=== PATIENT | male | born 1985 | race Caucasian/White ===

== ENCOUNTER → 2020-09-13 11:39 | Outpatient (CLI) | payer OTHER, SELFPAY ==
[2020-09-13 13:38] LABS: COVID19 -Nasal RAPID Negative (Negative)
== END ==
PROVIDERS: PCP Physician Assistant; Referring Provider Physician Assistant; Visit Provider Physician Assistant
DX: Z01.812 Encounter for preprocedural laboratory examination (principal); Z20.822 Contact with and (suspected) exposure to COVID-19
CPT/HCPCS: 87635

== ENCOUNTER → 2020-09-15 13:35 | Outpatient (CLI) | payer OTHER, SELFPAY ==
--- NOTE | 2020-09-15 | DI.ECHO.S_ITS ---
[facility] +---------+ : : [address] : [address] : : : : [id number] : : : : Phone: [phone]---------+ Echocardiogram Report + + :Name: MILES LOPEZ Study Date: 09/15/2020 Height: 75 in : [facility] Reading[facility] Weight: 190 lb : : Gender: Male BSA: 2.1 m2 : :: 1985 Age: 34 yrs BP: 144/89 mmHg: :Reason For Study: Palpitations : :Ordering Physician: Netta : :Devika Chowdhury Performed By: Edmond Sanford : :Referring: NETTA PARDO : + + Interpretation Summary Left ventricular systolic function is normal with an estimated ejection fraction of 55 to 60% without any focal wall motion abnormality. Left ventricular size and wall thickness are normal with probable normal diastolic function and normal filling pressures. The right ventricle appears normal. Right ventricular systolic pressure is likely around 25 mmHg with a CVP of 3 mmHg. Both atria are normal in size. There is no significant valvular abnormality. This is a normal echocardiogram. Procedure: A two-dimensional transthoracic echocardiogram with color flow and Doppler was performed. The study quality was technically adequate. There is no prior echocardiogram noted for this patient. The patient was in sinus rhythm with heart rates between 64-78 bpm during the exam. Left Ventricle: The left ventricle appears normal in size, wall thickness, and systolic function without any focal wall motion abnormalities. The ejection fraction is estimated to be 55-60%. Diastolic parameters suggest probable normal left ventricular diastolic function and normal filling pressures. Right Ventricle: The right ventricle is normal in size and function. Atria: Both atria are normal in size. There is no Doppler evidence for an interatrial shunt. Mitral Valve: The mitral valve leaflets appear borderline thickened, but open well. There is trace mitral regurgitation. Aortic Valve: The aortic valve is trileaflet. The aortic valve opens well. No aortic regurgitation is present. Tricuspid Valve: The tricuspid valve is normal in structure and function. There is trace tricuspid regurgitation. The right ventricular systolic pressure is estimated to be at least 25 mmHg based on an estimated right atrial pressure of 3 mm Hg. Pulmonic Valve: The pulmonic valve is normal in structure and function. There is a trace or physiologic amount of pulmonic regurgitation. Great Vessels: The aortic root is normal size. The dimensions of the ascending aorta are normal. The IVC is of normal diameter and collapses greater than 50% with a sniff. This suggests a low right atrial pressure of 3 mm Hg. Pericardium/ Pleura There is no pericardial effusion. There is no pleural effusion. MMode/2D Measurements & Calculations LVIDd: 5.1 cm LVOT diam: 2.2 cm LVIDs: 3.5 cm Ao root diam: 3.1 cm FS: 30.8 % asc Aorta Diam: 2.9 cm IVSd: 0.94 cm LVPWd: 0.84 cm LV mooney. diameter/BSA (cm/m^2): 2.4 LV sys. diameter/BSA (cm/m^2): 1.6 LA A2 area: 9.6 cm2 RA long axis: 4.2 cm LA A4 area: 12.1 cm2 RA area: 11.4 cm2 LA length (vol): 3.6 cm RA vol: 26.4 ml LA vol: 27.5 ml RA : 12.3 ml/m2 LA vol index: 12.8 ml/m2 RVD1 (basal): 2.3 cm TAPSE: 2.4 cm Doppler Measurements & Calculations Ao V2 max: 135.1 cm/sec LVOT Max Stewart: 123.8 cm/sec Ao V2 mean: 94.6 cm/sec LV V1 max P.1 mmHg Ao max P.3 mmHg LV V1 VTI: 21.9 cm Ao mean P.0 mmHg BAUTISTA(I,D): 3.2 cm2 Ao V2 VTI: 24.9 cm BAUTISTA(V,D): 3.3 cm2 sev ratio: 0.88 BAUTISTA indexed to BSA (cm^2/m^2): 1.5 MV E max stewart: 77.6 cm/sec TR max stewart: 234.7 cm/sec MV A max stewart: 53.4 cm/sec TR max P.0 mmHg MV E/A: 1.5 PA V2 max: 110.4 cm/sec Med Peak E' Stewart: 12.6 cm/sec PA V2 mean: 88.2 cm/sec E/E' med: 6.1 PA mean P.3 mmHg Lat Peak E' Stewart: 18.3 cm/sec PA pr(Accel): 19.8 mmHg E/E' lat: 4.2 E/e' average: 5.2 MV dec time: 0.24 sec [facility]): 79.6 ml Reading Physician:04:07 PM
--- NOTE | 2020-09-15 15:45 | PM.TREADMILL ---
Cardiac Stress Test Report Referral & Results Date Patient Seen: 09/15/20 Time Patient Seen: 15:45 Requesting provider: Luana Fortune Indication: Palpitations and other cardiomyopathies Rest ECG: Sinus rhythm Procedure Note: Standard Amado protocol, 13:22, 14.1 METS Fair exercise capacity, EDU +1% Normal hemodynamic response to exercise No chest pain or anginal symptoms; no palpitations No significant ST changes at peak exercise No ectopy Impression: Normal exercise stress test Please note: Actual ECG tracings can be found in the PACS system.
--- NOTE | 2020-09-15 18:29 | DI.NM.S_ITS ---
DATE OF SERVICE: 09/15/2020 PROCEDURE: Exercise stress test. INDICATIONS: Chest pain, family history of arrhythmogenic right ventricular dysplasia. CARDIAC STRESS: The patient underwent exercise stress test under the supervision of an attending staff. He walked on Amado protocol for 13 minutes and 22 seconds, achieved a maximum heart rate of 178, which was 95 percent of target heart rate. There was normal blood pressure response. Resting blood pressure 115/78 and peak blood pressure 180/90. The patient achieved 14.1 METs of workload and EDU positive 1 percent. Baseline EKG revealed sinus rhythm with repolarization changes with RSR-complex in V1 to V2 without any typical epsilon waves or Brugada pattern. During stress, there were no convincing EKG changes for ischemia. There were no significant arrhythmias. No chest pain or anginal symptoms. CONCLUSION: Exercise stress test is negative for inducible ischemia. Normal hemodynamic response. The patient walked on Amado protocol for 13 minutes and 22 seconds. No anginal symptoms. Achieved 14.8 METs of workload and EDU positive 1 percent. No ischemic electrocardiographic changes or significant arrhythmias. Overall, this is a low-risk exercise stress test. MILES LOPEZ - JOSLYN/michela/eli doc#: [id number]/job#: [id number] dd: 09/15/2020 17:24:00 dt: 09/15/2020 17:34:00 DICTATING /COPIES TO: Amparo Olmos MD COPIES MNE: ANTON;
== END ==
PROVIDERS: Referring Provider Internal Medicine; Visit Provider Internal Medicine
DX: R00.2 Palpitations (principal); I42.8 Other cardiomyopathies; R07.9 Chest pain, unspecified; Z84.89 Family history of other specified conditions
CPT/HCPCS: 93017; 93306